=== PATIENT | female | born 1955 | race Caucasian/White ===

== ENCOUNTER → 2023-11-13 07:00 | Outpatient (REF) | payer MEDICARE, SELFPAY | LOC: WDC 07:00 | PROVIDERS: ATTENDING PHYSICIAN Internal Medicine | DX: Z12.31 Encounter for screening mammogram for malignant neoplasm of breast (principal) | CPT/HCPCS: 77063; 77067 ==

== ENCOUNTER → 2024-03-23 08:03 | Outpatient (REF) | payer MEDICARE, SELFPAY | LOC: RAD 08:03 | PROVIDERS: ATTENDING PHYSICIAN Internal Medicine Rheumatology; FAMILY PHYSICIAN Internal Medicine | DX: M81.0 Age-related osteoporosis without current pathological fracture (principal); M85.89 Other specified disorders of bone density and structure, multiple sites; Z13.820 Encounter for screening for osteoporosis | CPT/HCPCS: 77080; 77081 ==

== ENCOUNTER → 2024-07-14 07:32 | Outpatient (REF) | payer MEDICARE, SELFPAY | LOC: PAVMRI 07:32 | PROVIDERS: ATTENDING PHYSICIAN Orthopaedic Surgery; FAMILY PHYSICIAN Internal Medicine | DX: M79.641 Pain in right hand (principal) | CPT/HCPCS: 73218 ==

== ENCOUNTER 2024-08-05 08:53 | Outpatient (RCR) | payer MEDICARE, SELFPAY | END 2024-08-05 23:59 | disposition home or self-care (01) | LOC: ROT 08:53 | PROVIDERS: ATTENDING PHYSICIAN Orthopaedic Surgery; FAMILY PHYSICIAN Internal Medicine | DX: M79.641 Pain in right hand (principal); Z73.6 Limitation of activities due to disability | CPT/HCPCS: 97018; 97110; 97140; 97166; 97535 ==

== ENCOUNTER 2024-09-02 08:52 | Outpatient (RCR) | payer MEDICARE, SELFPAY | END 2024-09-02 23:59 | disposition home or self-care (01) | LOC: ROT 08:52 | PROVIDERS: ATTENDING PHYSICIAN Orthopaedic Surgery; FAMILY PHYSICIAN Internal Medicine | DX: M79.641 Pain in right hand (principal); Z73.6 Limitation of activities due to disability; M25.641 Stiffness of right hand, not elsewhere classified; W17.89XD Other fall from one level to another, subsequent encounter | CPT/HCPCS: 97018; 97110; 97140 ==

== ENCOUNTER 2024-09-23 11:25 | Outpatient (RCR) | payer MEDICARE, SELFPAY | END 2024-09-23 23:59 | disposition home or self-care (01) | LOC: ROT 11:25 | PROVIDERS: ATTENDING PHYSICIAN Orthopaedic Surgery; FAMILY PHYSICIAN Internal Medicine | DX: M79.641 Pain in right hand (principal); Z73.6 Limitation of activities due to disability; M25.641 Stiffness of right hand, not elsewhere classified; W17.89XD Other fall from one level to another, subsequent encounter | CPT/HCPCS: 97018; 97110; 97140 ==

== ENCOUNTER 2024-10-07 11:32 | Outpatient (RCR) | payer MEDICARE, SELFPAY | END 2024-10-07 23:59 | disposition home or self-care (01) | LOC: ROT 11:32 | PROVIDERS: ATTENDING PHYSICIAN Orthopaedic Surgery; FAMILY PHYSICIAN Internal Medicine | DX: M79.641 Pain in right hand (principal); Z73.6 Limitation of activities due to disability; M25.641 Stiffness of right hand, not elsewhere classified; W17.89XD Other fall from one level to another, subsequent encounter | CPT/HCPCS: 97018; 97110 ==

== ENCOUNTER → 2024-11-17 07:30 | Outpatient (REF) | payer MEDICARE, SELFPAY | LOC: WDC 07:30 | PROVIDERS: ATTENDING PHYSICIAN Internal Medicine | DX: Z12.31 Encounter for screening mammogram for malignant neoplasm of breast (principal) | CPT/HCPCS: 77063; 77067 ==